=== PATIENT | female | born 1965 | race Caucasian/White ===

== ENCOUNTER 2016-10-15 05:38 | Emergency (ER) | payer OTHER ==
[~2016-10-15] VITALS: Ht 167.6 cm; Wt 113.6 kg
[2016-10-15 05:42] VITALS: BP 142/81; PULSE 60; RESP 18; O2SAT 98
--- NOTE | 2016-10-15 06:17 | ED.REPORT ---
HPI-Headache Date of Service Oct 15, 2016 ED Provider: Celena Eason MD The patient is a 51 year old female with history of migraines who presents to the emergency department complaining of a head injury that occurred 2 days ago. The patient states that she was climbing into their motor home, stumbled, and hit her head on the door. She felt dazed after the injury but was able to go on with her day. That night she had a few drinks but felt much more drunk than she had expected to. Yesterday she felt very nauseous, was unable to eat anything and had a headache. This continued throughout the day and she started vomiting last night. Her head pain has worsened since onset and she has noticed some photophobia. She denies neck pain. Her current symptoms are not similar to previous migraine headaches. Nursing Notes Stated Complaint: HEAD INJURY Chief Complaint: Head, Face, Neck Trauma Nursing Notes Reviewed: Yes Allergies: Coded Allergies: Sulfa (Sulfonamide Antibiotics) (Verified Allergy, Unknown, Hives, 10/15/16) Scheduled Ondansetron (Ondansetron) 4 Mg Tablet 4 MG PO QID Scheduled PRN oxyCODONE-Aspirin 5-325 mg (oxyCODONE-Aspirin 5-325 mg) 1 Each Tablet 0.5-1 TABLET PO Q4H PRN PRN For Pain General Time Seen by MD: 06:04 Chief Complaint Headache Hx Obtained From: Patient Arrived By: Walk-in Sudden in Onset?: No Onset Occurred: 2 days ago Context of Onset: Head injury Symptom Duration: Since onset Location: : Frontal left Quality: Painful Severity: Current: Moderate Severity: Maximum: Moderate Recent Healthcare: No recent doctor visit, No recent hospitalization Similar Sx Previous: No Past Medical History Past Medical History Migraines Thyroid disease Asthma Family History Noncontributory Smoking History Unknown if Ever Smoker Social History Other Social History: Good social support, Local resident Ambulatory Status Independent Review of Systems Eyes: Reports: Photophobia GI: Reports: Nausea, Vomiting Musculoskeletal: Denies: Neck pain Neurologic: Reports: Headache Complete sys rev & neg: except as marked. Physical Exam Initial Vital Signs Vital Signs (First) Date Time Temp Pulse Resp B/P Pulse Ox O2 Delivery O2 Flow Rate FiO2 10/15/16 05:42 36.6 60 18 142/81 98 Room Air Initial VS: Reviewed ENT: Mucous membranes moist, Conjunctiva normal, No scleral icterus Respiratory: Breath sounds normal, Clear to auscultation, No respiratory distress Cardiovascular: Regular rate & rhythm, Heart sounds normal, Intact distal pulses Abdomen / GI: Soft, Non-tender, No guarding, No rebound, No distention Lymphatic: No lymphadenopathy Extremities: Vascular intact, Neuro intact, No swelling, No tenderness Skin: Warm, Dry, No cyanosis Psychiatric: Mood/affect normal, Behavior normal, Normal thought content General/Constitutional: Awake, Alert, No acute distress Head / Eyes: Normocephalic, PERRL, EOMI Left frontal contusion NECK: Point tenderness at C3 Neurologic: Oriented X3, Speech NL, No motor deficits, No sensory deficits Interpretation & Diagnostics CT Head Interpretation Conclusion: No CT evidence of acute intracranial pathology only what appears to 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 Study: Head CT no contrast Interpretation / Wet Read by: Interpret - Radiologist CT C-Spine Interpretation Conclusion: No acute osseous pathology Study type: CT no contrast Interpretation / Wet Read by: Interpret - Radiologist Re-Eval/Medical Decision Source of Hx: Old records Re-Evaluation/Progress : Time of Eval: 07:53 Re-Evaluation/Progress Note: Rechecked the patient. Discussed results, diagnosis, and plan for discharge. All questions were addressed. Counseled Regarding: Diagnosis, Need for follow-up, When/why to return to ED Discharge & Departure Impression: Primary Impression: Neck strain Encounter type: initial encounter Qualified Code: S16.1XXA - Strain of muscle, fascia and tendon at neck level, initial encounter Additional Impression: Cervical strain, acute Encounter type: initial encounter Qualified Code: S16.1XXA - Strain of muscle, fascia and tendon at neck level, initial encounter Ruled Out: Intracranial hemorrhage, Cervical spine fracture Disposition: Home Discharge Condition All VS Reviewed: Yes Condition: Stable Additional Instructions: Thank you for entrusting us with your care today. Your head CT and neck CT scans today are reassuring. There is no evidence of any intracranial bleeding or fractures. You do have a concussion and an acute neck strain. You can expect to experience nausea, headache, irritability, and trouble remembering things. This will all improve with time. Try to take it easy over the next few days. Use the Zofran as needed for nausea and Percocet as needed for pain. You can take 1/2 tab of the Percocet with ibuprofen. You can take up to 2 Percocet tabs at once but I recommend starting with a lower dose. You can look up post concussion syndrome online for new information. Followup with your regular doctor later this week for re-evaluation. Return to the emergency department for any new or concerning symptoms. I'm glad I didn't find anything bad today. I hope you heal quickly Referrals: Everett Yuan MD (PCP) Mikaelaibariella Attestation Portions of this note were transcribed by Lucero Reeves. I, Dr. Eason personally performed the history, physical exam and medical decision-making; I reviewed and confirmed the accuracy of the information in the transcribed note. Signed by: Sonya Olea, 10/15/2016 at 0810. copies to: Everett Yuan MD, Shawna L MD Oct 15, 2016 06:17 Lucero Reeves Oct 15, 2016 06:18
[2016-10-15] MEDS ORDERED: 0.9% Sodium Chloride 1,000 ML IV ONE (06:49)
[2016-10-15] MEDS ORDERED: Ondansetron 2 mg/mL 2 mL Inj IVPUSH ONE (06:50)
[2016-10-15] MEDS ORDERED: HYDROmorphone 0.5 mg/0.5 mL iSecure Syringe IVPUSH PRN (06:50)
--- NOTE | 2016-10-15 07:53 | DRSVH ---
PROCEDURE: CT BRAIN WITHOUT CONTRAST ([id number]) INDICATIONS: trauma, headache TECHNIQUE: Noncontrast 4.5 mm thick angled axial sections acquired from the foramen magnum to the vertex, with c oronal reformats. COMPARISON: None. FINDINGS: Image quality: Excellent. CSF spaces: Basal cisterns are patent. No extra-axial fluid collections. Ventricles are normal in size and shape. Brain: There is a hypodensity in the left basal ganglia. No midline shift. No intracranial masses o r hemorrhage. Nice-white matter interface is normal. Skull and face: Calvarium and visualized facial bones are intact, without suspicious lesions. Sinuses: Visualized sinuses and mastoids are clear. IMPRESSION: 1. No acute intracranial abnormalities. 2. Hypodensity in the left basal ganglia. Differential diagnosis includes old lacunar infarct versus dilated perivascular space. No significant discrepancy with the shift supervisor melting radiology preliminary report. Dictated by: Sharri Parish M.D. on 10/15/2016 at 7:52 Transcribed by: CRISTIANO on 10/15/2016 at 7:53 Approved by: Sharri Parish M.D. on 10/15/2016 at 11:05
[2016-10-15] MEDS ORDERED: oxyCODONE-Acetamin 5-325 mg Tablet PO ONE (08:05)
[2016-10-15] MEDS ORDERED: OXYC-388 PO (08:06)
[2016-10-15] MEDS ORDERED: ONDA-53 PO (08:06)
[2016-10-15 08:16] VITALS: BP 144/74; PULSE 51; RESP 16; O2SAT 94
--- NOTE | 2016-10-15 08:23 | DRSVH ---
PROCEDURE: CT CERVICAL SPINE WITHOUT CONTRAST ([id number]) INDICATIONS: trauma, headache TECHNIQUE: Noncontrast 3 mm thick sections acquired from the skull base to the T4 level. Sagittal and coronal r eformats were then constructed. For radiation dose reduction, the following was used: automated exp osure control, adjustment of mA and/or kV according to patient size. COMPARISON: None. FINDINGS: Image quality: Excellent. Bones: No fractures or dislocations. Visualized superior ribs are intact. Soft tissues: Prevertebral soft tissues are normal in thickness. No paravertebral hematomas. No ap ical pneumothoraces. IMPRESSION: No acute traumatic injuries in cervical spine. No significant discrepancy with the nursing director radiology preliminary report. Dictated by: Sharri Parish M.D. on 10/15/2016 at 8:20 Approved by: Sharri Parish M.D. on 10/15/2016 at 8:22
[2016-10-15 08:26] VITALS: BP 144/74; PULSE 51; RESP 16; O2SAT 94
== END 2016-10-15 08:26 | disposition home or self-care (01) ==
LOC: SED 05:38
DX: S16.1XXA Strain of muscle, fascia and tendon at neck level, initial encounter (principal); S00.03XA Contusion of scalp, initial encounter; W18.49XA Other slipping, tripping and stumbling without falling, initial encounter; Y93.39 Activity, other involving climbing, rappelling and jumping off; Y92.009 Unspecified place in unspecified non-institutional (private) residence as the place of occurrence of the external cause; Y99.8 Other external cause status; R11.2 Nausea with vomiting, unspecified; H53.149 Visual discomfort, unspecified; J45.909 Unspecified asthma, uncomplicated; E07.9 Disorder of thyroid, unspecified; Z88.2 Allergy status to sulfonamides
CPT/HCPCS: 70450; 72125; 96361; 96374; 96375; 99285; J1170; J1885; J2405; J7030

== ENCOUNTER 2016-10-29 07:01 | Emergency (ER) | payer OTHER ==
[~2016-10-29] VITALS: Ht 167.6 cm; Wt 113.6 kg
[~2016-10-29 07:01] MED LIST: ONDA-53 PO; OXYC-388 PO
[2016-10-29 07:04] VITALS: BP 135/94; PULSE 79; RESP 18; O2SAT 94
--- NOTE | 2016-10-29 07:08 | ED.REPORT ---
HPI-NVD Date of Service Oct 29, 2016 ED Provider: Celena Eason MD 51 year old female presents to the ER accompanied by her complaining of vomiting and diarrhea onset yesterday after lunch. After eating around 14:00 she developed diarrhea and "projectile vomiting" that has been persistent throughout the night. Her stool has contained progressively more blood since onset, and now consists of mostly of jimenez red blood. Associated symptoms include chills, and "cramping" abdominal pain. Patient was seen here in the department for a head injury on 10/15/2016, at which time she had head and neck imaging, was diagnosed with concussion, and was sent home with narcotic pain medication. reports episodes of disorientation, and "trouble word- finding" since the incident, as well as nausea. Patient has been off of antibiotics for 6 weeks after being treated for URI. Nursing Notes Stated Complaint: VOMITING/DIARRHEA Chief Complaint: Female Abdominal Pain Nursing Notes Reviewed: Yes Allergies: Coded Allergies: Sulfa (Sulfonamide Antibiotics) (Verified Allergy, Unknown, Hives, 10/15/16) Scheduled Calcium Carbonate/Vitamin D3 (Calcium + Vitamin D Tablet) 1 Each Tablet 1 TABLET PO BID Fluticasone/Salmeterol (Advair 250-50 Diskus) 60 Puff/Inh Disk 1 PUFF IH BID Levothyroxine (Levothyroxine) 50 Mcg Tablet 50 MCG PO QAM Multivitamin (Multi Vitamin Daily) 1 Each Tablet 1 TABLET PO DAILY Ondansetron ODT (Ondansetron ODT) 4 Mg Tab.rapdis 4 MG PO TID Spironolactone (Spironolactone) 100 Mg Tablet 100 MG PO DAILY Scheduled PRN Albuterol Sulfate (Ventolin HFA Inhaler) 200 Puff/18 Gm Inhaler 1 PUFF INH QID PRN PRN For Shortness of Breath General Time Seen by MD: 07:08 Chief Complaint Vomiting, Diarrhea Hx Obtained From: Patient, Spouse Arrived By: Walk-in Onset Occurred: Yesterday Symptom Duration: Since onset Diarrhea: Diarrhea is bloody Location: : Diffuse Quality: Cramping Severity: Current: Moderate Severity: Maximum: Moderate Associated with: Reports: Blood in stool Pertinent Negative: Pt denies other symptoms Recent Healthcare: Recent doctor visit Similar Sx Previous: No Past Medical History Past Medical History Migraines Thyroid disease Asthma Family History Noncontributory Smoking History Unknown if Ever Smoker Social History Other Social History: Good social support, Local resident Ambulatory Status Independent Review of Systems Constitutional: Reports: Chills, Denies: Fever GI: Reports: Abdominal pain, Bloody/tarry stool, Diarrhea, Hematochezia, Nausea , Vomiting Complete sys rev & neg: except as marked. Female: Denies: Dysuria, Flank pain, Pelvic pain, Urinary frequency, Urinary urgency Physical Exam Initial Vital Signs Vital Signs (First) Date Time Temp Pulse Resp B/P Pulse Ox O2 Delivery O2 Flow Rate FiO2 10/29/16 07:04 37.1 79 18 135/94 94 Room Air Initial VS: Reviewed Head / Eyes: Atraumatic, Normocephalic Neck: Supple, Non-tender, Full range of motion Respiratory: Breath sounds normal, Clear to auscultation, No respiratory distress Cardiovascular: Regular rate & rhythm, Heart sounds normal, Intact distal pulses Extremities: Vascular intact, Neuro intact, No swelling, No tenderness Skin: Warm, Dry, No cyanosis Neurologic: Alert, Oriented, Nonfocal Psychiatric: Mood/affect normal, Behavior normal, Normal thought content General/Constitutional: Awake, Alert, Well developed, Well nourished Abdomen: Soft, No guarding, No rebound, No distention Tenderness/Guarding/Rebound: Positive: Tender diffuse Interpretation & Diagnostics Interpretation & Diagnostics: Stool viral PCR is negative. Lab Results Interpretation Result Diagram: 10/29/16 0730 10/29/16 0730 Test 10/29/16 07:30 10/29/16 10:25 White Blood Count 12.5th/mm3 (3.8-10.1) Red Blood Count 5.11mil/mm3 (3.90-5.20) Hemoglobin 15.0g/dL (12.0-15.6) Hematocrit 45.2% (35.0-46.0) Mean Corpuscular Volume 88.5fL (81-100) Mean Corpuscular Hemoglobin 29.4pg (27.0-35.0) Mean Corpuscular Hemoglobin Concent 33.2% (32.0-37.0) Red Cell Distribution Width 13.0% (12.3-15.4) Platelet Count 428bil/L (150-400) Neutrophils (%) (Auto) 76.8% (40-74) Lymphocytes (%) (Auto) 13.6% (14-46) Monocytes (%) (Auto) 9.2% (4-12) Eosinophils (%) (Auto) 0.1% (0-5) Basophils (%) (Auto) 0.2% (0-3) Sodium Level 140mEq/L (134-144) Potassium Level 4.6mEq/L (3.5-5.2) Chloride Level 97mEq/L (97-108) Carbon Dioxide Level 27mmol/L (18-29) Blood Urea Nitrogen 17mg/dL (6-24) Creatinine 0.82mg/dL (0.57-1.00) Estimat Glomerular Filtration Rate 106mL/min (>59) Glucose Level 118mg/dL (60-99) Calcium Level 10.3mg/dL (8.5-10.1) Total Bilirubin 0.6mg/dL (0.0-1.2) Aspartate Amino Transf (AST/SGOT) 20U/L (0-50) Alanine Aminotransferase (ALT/SGPT) 24U/L (0-32) Alkaline Phosphatase 69U/L (25-150) Total Protein 8.0g/dL (6.4-8.4) Albumin 4.7g/dL (3.4-5.0) Lipase 23U/L (13-60) Hold Prabhakar Top Tube Received (Received) Hold Urine Received (Received) Re-Eval/Medical Decision Med Decision/Clinical Course Feeling better with Zofran and fluids. In light of negative stool viral PCR suspect that this is food poisoning and likely will resolve rather quickly. Source of Hx: Old records Re-Evaluation/Progress #1: Time of Eval: 10:07 Re-Evaluation/Progress Note: Patient is improved. Feeling a bit better and has provided all samples. 1L of fluid in but still feeling dry. Re-Evaluation/Progress #2: Time of Eval: 11:58 Re-Evaluation/Progress Note: Nausea is markedly improved. Discussed lab results and plan to discharge / need for admission. Patient is amenable to the plan. Return precautions given. All other questions addressed. Counseled Regarding: Diagnosis, Lab results, Need for follow-up, When/why to return to ED Discharge & Departure Impression: Primary Impression: Nausea and vomiting Additional Impression: Food poisoning Disposition: Home Discharge Condition All VS Reviewed: Yes Condition: Stable Patient Instructions: Acute Nausea and Vomiting (DC), Food Poisoning (ED) Additional Instructions: Your evaluation was reassuring. All your lab results are negative. I do not believe that there is any immediately dangerous cause for your symptoms at this time. I think you are likely experiencing symptoms related to food poisoning. The Viral stool PCR testing today was negative. You still have and some residual nausea from your recent concussion. Use the prescribed Zofran as directed for nausea. The prescription has been electronically sent to [facility] Drink plenty of fluids, as you are able to tolerate. Start with a bland diet, or anything that sounds/looks good to you, and progress as tolerated. Return to the ER if you develop any worsening or concerning symptoms. Referrals: Everett Yuan MD (PCP) Mikaelaibe Attestation Portions of this note were transcribed by Moe Lema. I, Dr. Eason, personally performed the history, physical exam and medical decision-making; I reviewed and confirmed the accuracy of the information in the transcribed note. Signed by: Sonya Vargas, 10/29/2016 and 12:09 copies to: Everett Yuan MD, Shawna L MD Oct 29, 2016 07:08 MOE LEMA Oct 29, 2016 07:20
[2016-10-29] MEDS ORDERED: Ondansetron 2 mg/mL 2 mL Inj IVPUSH ONE (07:25)
[2016-10-29] MEDS ORDERED: Pantoprazole 4 mg/mL 10 mL Inj IVPUSH ONE (07:25)
[2016-10-29] MEDS ORDERED: 0.9% Sodium Chloride 1,000 ML IV ONE ×2 (07:25)
[2016-10-29 07:47] LABS: BASOPHILS % (AUTO) 0.2 % (0-3); EOSINOPHILS % (AUTO) 0.1 % (0-5); MONOCYTES % (AUTO) 9.2 % (4-12); Mean Corpuscular Hemoglobin 29.4 pg (27.0-35.0); Mean Corpuscular Volume 88.5 fL (81-100); NEUTROPHILS % (AUTO) 76.8 % (40-74); Platelet Count 428 bil/L (150-400)
[2016-10-29] MEDS ORDERED: SPIR100T3 PO (08:00)
[2016-10-29] MEDS ORDERED: MULT-1018 PO (08:00)
[2016-10-29] MEDS ORDERED: ALBU18HF INH (08:00)
[2016-10-29] MEDS ORDERED: ADV250INH IH (08:00)
[2016-10-29] MEDS ORDERED: CALC-140 PO (08:00)
[2016-10-29] MEDS ORDERED: LEVO50TA6 PO (08:00)
[2016-10-29 11:52] VITALS: BP 143/80; PULSE 83; RESP 18; O2SAT 94
[2016-10-29] MEDS ORDERED: ONDA4TAB12 PO (12:07)
[2016-10-29 12:19] VITALS: BP 143/80; PULSE 83; RESP 18; O2SAT 94
== END 2016-10-29 12:20 | disposition home or self-care (01) ==
LOC: SED 07:09
DX: R11.2 Nausea with vomiting, unspecified (principal); T62.94XA Toxic effect of unspecified noxious substance eaten as food, undetermined, initial encounter; X58.XXXA Exposure to other specified factors, initial encounter; Y93.89 Activity, other specified; Y99.8 Other external cause status; Y92.9 Unspecified place or not applicable; J45.909 Unspecified asthma, uncomplicated; Z86.39 Personal history of other endocrine, nutritional and metabolic disease; Z79.51 Long term (current) use of inhaled steroids; Z88.2 Allergy status to sulfonamides
CPT/HCPCS: 36415; 80053; 83690; 85025; 87507; 96361; 96374; 96375; 99284; J2405; J7030